=== PATIENT | female | born 1990 | race Two or more races ===

== ENCOUNTER 2020-04-07 15:57 | Outpatient (CLI) | payer MEDICAID ==
[2020-04-07 16:48] LABS: APPEARANCE,URINE CLEAR; BILIRUBIN,URINE NEGATIVE (NEGATIVE); COLOR,URINE STRAW; GLUCOSE, URINE NEGATIVE (NEGATIVE); KETONES,URINE NEGATIVE (NEGATIVE); LEUKOCYTE ESTERASE,URINE NEGATIVE (NEGATIVE); NITRITE,URINE NEGATIVE (NEGATIVE); PROTEIN,URINE NEGATIVE (NEGATIVE); URINE SPECIFIC GRAVITY 1.004; UROBILINOGEN,URINE NEGATIVE mg/dL (<2.0)
[2020-04-07 16:48] LABS: T.VAGINALIS (WET MOUNT) NO TRICHOMONAS SEEN; YEAST (WET MOUNT) NO YEAST SEEN
[2020-04-07 16:49] LABS: BACTERIA (WET MOUNT) 3+ BACTERIA SEEN; EPITHELIALS (WET MOUNT) 4+ EPITHELIALS SEEN; RBCS (WET MOUNT) NO RBCS SEEN; WBCS (WET MOUNT) 1+ WBCS SEEN
[2020-04-07 17:05] LABS: URINE AMPHETAMINES SCREEN NEGATIVE; URINE BARBITURATES SCREEN NEGATIVE; URINE BENZODIAZEPINES SCREEN NEGATIVE; URINE COCAINE SCREEN NEGATIVE; URINE MARIJUANA (THC) SCREEN NEGATIVE; URINE METHADONE SCREEN NEGATIVE; URINE PHENCYCLIDINE SCREEN NEGATIVE
[2020-04-07 18:17] LABS: CHLAM PCR NOT DETECTED (NOT DETECT)
== END 2020-04-07 17:36 | disposition home or self-care (01) ==
LOC: LC 15:57
PROVIDERS: ATTEND Obstetrics & Gynecology
DX: Z34.93 Encounter for supervision of normal pregnancy, unspecified, third trimester (principal); Z3A.31 31 weeks gestation of pregnancy
CPT/HCPCS: 80307; 81001; 84112; 87210; 87491; 87591

== ENCOUNTER → 2020-05-25 | Outpatient (CLI) | payer MEDICAID ==
[~2020-05-25] MED LIST: RINGERS SOLUTION,LACTATED 1,000 ML IV ONE; RINGERS SOLUTION,LACTATED 1,000 ML IV PRN; TERBUTALINE SULFATE INJ/PF 1 MG/1 ML SDV ONE; TERBUTALINE SULFATE INJ/PF 1 MG/1 ML SDV SUBCUT ONE
[2020-05-25 11:00] LABS: ABSOLUTE EOSINOPHILS # (AUTO) 0.2 10^3/uL (0.0-0.6); ABSOLUTE LYMPHOCYTES (AUTO) 1.5 10^3/uL (0.5-4.7); ABSOLUTE MONOCYTES (AUTO) 0.6 10^3/uL (0.1-1.4); ABSOLUTE NEUT (AUTO) 5.9 10^3/uL (1.7-8.2); BASOPHILS % (AUTO) 0.3 % (0-2); HEMATOCRIT 29.8 % (36.0-47.0); HEMOGLOBIN 10.3 g/dL (12.0-15.5); LYMPHOCYTES % (AUTO) 17.9 % (13-45); MEAN CORPUSCULAR HEMOGLOBIN 28.6 pg (27.0-33.4); MEAN CORPUSCULAR HGB CONC 34.5 g/dL (32.0-36.0); MEAN CORPUSCULAR VOLUME 83 fl (80-97); MONOCYTES % (AUTO) 6.9 % (3-13); PLATELET COUNT 176 10^3/uL (150-450); RED CELL DISTRIBUTION WIDTH 13.1 % (11.5-14.0); SEGMENTED NEUTROPHILS % (AUTO) 71.9 % (42-78); TOTAL CELLS COUNTED % (AUTO) 100 %; WHITE BLOOD COUNT 8.2 10^3/uL (4.0-10.5)
--- NOTE | 2020-05-25 11:13 | Admission Physical ---
Datetime Report Generated by CPN: 05/25/2020 11:13 CURRENT ADMISSION Chief Complaint: Other Chief Complaint Other: Scheduled Version Admit Impression : Term, Intrauterine Admit Impression- Other: 38.4 wks EGA for Schedule ECV Admit Plan: Admit to Unit ALLERGIES Medication Allergies: Yes Medication Allergies: Sulfa (Sulfonamide Antibiotics) (05/25/2020) Latex: No Latex Allergies OBSTETRICAL HISTORY EDC: 06/04/2020 00:00 : 2 Para: 1 Term: 0 : 1 SAB: 0 IAB: 0 Ectopic: 0 Livin Cesareans: 0 VBACs: 0 Multiple Births: 0 PHYSICAL EXAM General: Normal HEENT: Normal Neurologic: Normal Thyroid: Normal Heart: Normal Lungs: Normal Breast: Normal Back: Normal Abdomen: Normal Genitourinary Exam: Normal Extremities: Normal DTRs: Normal Pelvic Type: Adequate Vital Signs: Reviewed; Within Normal Limits MEMBRANES Membranes: Intact FETUS A EGA: 38.4 Monitoring: External US FHR- Baseline: 130 Variability: Moderate 6-25bpm Accelerations: 15X15 Decelerations: None FHR Category: Category I Presentation: Vertex Admit Comment: at 38.4 wks EGA for scheduled ECV -Admit to LDR -NPO and IVFs: LR bolus 1 liter followed by 125 cc/hr -CEFM and [place] -RIsks and benefits reviewed as well as alternatives. Consented for externa cephalic version, Primary section and blood products -RH positive -BSUS in room -Plan terbutaline 0.25 mg SC prior to procedure -Empty bladder -Plan for External cephalic version -OR and anesthesia notified of procedure INFORMED CONSENT Informed Consent Obtained: Vaginal Delivery; Section Delivery; Risks, Benefits and Alternatives Discussed Signature: with User ID: Gustavo : with User ID: Gustavo
[2020-05-25 11:27] LABS: URINE AMPHETAMINES SCREEN NEGATIVE; URINE BARBITURATES SCREEN NEGATIVE; URINE BENZODIAZEPINES SCREEN NEGATIVE; URINE COCAINE SCREEN NEGATIVE; URINE MARIJUANA (THC) SCREEN NEGATIVE; URINE METHADONE SCREEN NEGATIVE; URINE PHENCYCLIDINE SCREEN NEGATIVE
--- NOTE | 2020-05-26 04:18 | PDOC DISCHARGE SUMMARY ---
Impression - Admit/DC Date/PCP Admission Date/Primary Care Provider: 05/25/20 Discharge Date: 05/25/20 - Discharge Diagnosis (1) Malpresentation before onset of labor Is this a current diagnosis for this admission?: Yes - Assessment Summary: Admitted for ECV: unsuccessful Observed for 1 hour post procedure NST category 1 No abdominal pain or bleeding Precautions discussed Schedule for primary D/c in stable condition - Additional Information Resuscitation Status: Full Code Discharge Diet: As Tolerated Discharge Activity: Activity As Tolerated Referrals: ROSHAN NATHAN MD [ACTIVE PROVISIONAL STAFF] - (in 2-3 days) Home Medications: Pnv No.95/Ferrous Fum/Folic AC [ Caplet] 1 tab PO DAILY 04/07/20 History of Present Illiness History of Present Illness: LYNETTE SHUKLA is a 29 year old female Physical Exam - Physical Exam Vital Signs: Intake & Output 05/24/20 05/25/20 05/26/20 06:59 06:59 06:59 Weight 85.6 kg Results Laboratory Results: WBC 8.2 10^3/uL (4.0-10.5) 05/25/20 10:13 RBC 3.60 10^6/uL (3.72-5.28) L 05/25/20 10:13 Hgb 10.3 g/dL (12.0-15.5) L 05/25/20 10:13 Hct 29.8 % (36.0-47.0) L 05/25/20 10:13 MCV 83 fl (80-97) 05/25/20 10:13 MCH 28.6 pg (27.0-33.4) 05/25/20 10:13 MCHC 34.5 g/dL (32.0-36.0) 05/25/20 10:13 RDW 13.1 % (11.5-14.0) 05/25/20 10:13 Plt Count 176 10^3/uL (150-450) 05/25/20 10:13 Lymph % (Auto) 17.9 % (13-45) 05/25/20 10:13 [place] % (Auto) 6.9 % (3-13) 05/25/20 10:13 Eos % (Auto) 3.0 % (0-6) 05/25/20 10:13 Baso % (Auto) 0.3 % (0-2) 05/25/20 10:13 Absolute Neuts (auto) 5.9 10^3/uL (1.7-8.2) 05/25/20 10:13 Absolute Lymphs (auto) 1.5 10^3/uL (0.5-4.7) 05/25/20 10:13 Absolute Monos (auto) 0.6 10^3/uL (0.1-1.4) 05/25/20 10:13 Absolute Eos (auto) 0.2 10^3/uL (0.0-0.6) 05/25/20 10:13 Absolute Basos (auto) 0.0 10^3/uL (0.0-0.2) 05/25/20 10:13 Seg Neutrophils % 71.9 % (42-78) 05/25/20 10:13 Urine Opiates Screen NEGATIVE 05/25/20 09:05 Urine Methadone Screen NEGATIVE 05/25/20 09:05 Ur Barbiturates Screen NEGATIVE 05/25/20 09:05 Ur Phencyclidine Scrn NEGATIVE 05/25/20 09:05 Ur Amphetamines Screen NEGATIVE 05/25/20 09:05 U Benzodiazepines Scrn NEGATIVE 05/25/20 09:05 Urine Cocaine Screen NEGATIVE 05/25/20 09:05 U Marijuana (THC) Screen NEGATIVE 05/25/20 09:05 Blood Type A POSITIVE 05/25/20 10:13 Antibody Screen NEGATIVE 05/25/20 10:13 Stroke Is this a Stroke Patient?: No Acute Heart Failure Is this a Heart Failure Patient?: No
== END ==
LOC: LC 08:50
PROVIDERS: ATTEND Obstetrics & Gynecology
DX: O32.9XX0 Maternal care for malpresentation of fetus, unspecified, not applicable or unspecified (principal); Z3A.38 38 weeks gestation of pregnancy; Z88.1 Allergy status to other antibiotic agents
CPT/HCPCS: 59025; 86900; 86901; 36415; 86850; 85025; 80307; J3105